=== PATIENT | female | born 1955 | race African-American/Black ===

== ENCOUNTER 2023-03-15 05:32 | Day surgery (SDC) | payer OTHER ==
[2023-03-09 11:30] VITALS: BMI 30.9
[2023-03-15 12:23] VITALS: BP 155/61; PULSE 51; RESP 18
[2023-03-15 12:41] VITALS: TEMP 98
== END 2023-03-15 12:37 | disposition home or self-care (01) ==
LOC: JASU-ENDO 05:32
PROVIDERS: ATTEND Student in an Organized Health Care Education/Training Program
PROC: 0DBN8ZX Excision of Sigmoid Colon, Via Natural or Artificial Opening Endoscopic, Diagnostic (ICD-10-PCS; 2023-03-15)
PROC: 0DBM8ZX Excision of Descending Colon, Via Natural or Artificial Opening Endoscopic, Diagnostic (ICD-10-PCS; principal; 2023-03-15 11:00)
DX: Z12.11 Encounter for screening for malignant neoplasm of colon (principal); D12.4 Benign neoplasm of descending colon; D12.5 Benign neoplasm of sigmoid colon; K63.89 Other specified diseases of intestine
CPT/HCPCS: 82962; 88305-TC

== ENCOUNTER 2024-10-10 13:35 | Observation (INO) | payer OTHER ==
[2024-10-10 13:43] VITALS: BMI 26.9
[2024-10-10] MEDS ORDERED: ALBUTEROL SO4 2.5/IPRATROPIUM 0.5 INH SOL 3 ML VIAL.NEB. NEB ONE (14:28)
[2024-10-10] MEDS: ALBUTEROL SO4 2.5/IPRATROPIUM 0.5 INH SOL 3 ML VIAL.NEB. NEB SCH ×2 (14:30→20:41)
[2024-10-10] MEDS ORDERED: ACETAMINOPHEN INJECTION 100 ML ONE (14:54)
[2024-10-10] MEDS ORDERED: methylPREDNISolone NA SUCC 125 MG/2 ML VIAL ONE (14:55)
[2024-10-10 14:59] LABS: BASO % 0.9 % (0-2.0); HEMATOCRIT 36.3 % (32.4-45.2); HEMOGLOBIN 11.9 GM/dL (10.7-15.3); LYMPH % 25.9 % (8-40); MCH 28.7 pg (25.7-33.7); MCHC 32.8 g/dl (32.0-36.0); MEAN CELL VOLUME 87.5 fl (80-96); MEAN PLT VOLUME 7.8 fl (7.5-11.1); MONO % 6.5 % (3.8-10.2); NEUT % 63.7 % (42.8-82.8); PLATELET COUNT 257 10^3/uL (134-434); RBC 4.15 M/mm3 (3.60-5.2); RDW 14.5 % (11.6-15.6); WHITE BLOOD COUNT 11.5 K/mm3 (4.0-10.0)
[2024-10-10 15:00] LABS: VENOUS BASE EXCESS 0.6 mmol/L (-2-2); VENOUS O2 SATURATION 38.9 % (70-80); VENOUS PCO2 53.9 mmHg (38-52); VENOUS PH 7.326 (7.310-7.410)
[2024-10-10] MEDS: ACETAMINOPHEN 1000 MG/100 ML BAG IVPB ONE (15:03)
[2024-10-10] MEDS: methylPREDNISolone NA SUCC 125 MG/2 ML VIAL IVPUSH ONE (15:03)
[2024-10-10 15:06] LABS: INR 1.05 (0.83-1.09); PROTHROMBIN TIME (PATIENT) 11.5 SEC (9.7-13.0)
[2024-10-10 15:08] LABS: ACTIVATED PTT 31.2 SECONDS (25.2-36.5)
[2024-10-10 15:28] LABS: POTASSIUM 4.3 mmol/L (3.5-5.1)
[2024-10-10 15:31] LABS: ALBUMIN 3.3 g/dl (3.4-5.0); BLOOD UREA NITROGEN 8.5 mg/dL (7-18); CALCIUM 8.9 mg/dL (8.5-10.1)
[2024-10-10 15:34] LABS: CREATININE 0.5 mg/dL (0.55-1.3)
[2024-10-10 15:36] LABS: BILIRUBIN,TOTAL 0.4 mg/dL (0.2-1); TOT PROT 6.7 g/dl (6.4-8.2)
[2024-10-10 16:52] LABS: HIV INTERPRETATION NEGATIVE (NEGATIVE)
[2024-10-10 16:58] LABS: N-TERMINAL BNP 71.5 pg/ml (5-125)
[2024-10-10 17:19] LABS: ERYTHROCYTE SEDIMENTATION RATE 18 mm/hr (0-30)
[2024-10-10] MEDS ORDERED: ENOXAPARIN NA (PORCINE) 60 MG/0.6 ML DISP.SYRIN SQ ONE (18:08)
[2024-10-10] MEDS: ENOXAPARIN NA (PORCINE) 60 MG/0.6 ML DISP.SYRIN SQ ONE (18:10)
[2024-10-10] MEDS: methylPREDNISolone NA SUCC 40 MG/1 ML VIAL IVPUSH SCH (20:28)
[2024-10-11 07:15] LABS: BASO % 0.2 % (0-2.0); HEMATOCRIT 33.7 % (32.4-45.2); LYMPH % 14.6 % (8-40); MCH 28.5 pg (25.7-33.7); MCHC 32.6 g/dl (32.0-36.0); MEAN CELL VOLUME 87.3 fl (80-96); MEAN PLT VOLUME 8.1 fl (7.5-11.1); MONO % 6.3 % (3.8-10.2); NEUT % 78.9 % (42.8-82.8); PLATELET COUNT 257 10^3/uL (134-434); RBC 3.86 M/mm3 (3.60-5.2)
[2024-10-11 07:21] LABS: POTASSIUM 4.1 mmol/L (3.5-5.1)
[2024-10-11 07:27] LABS: BLOOD UREA NITROGEN 9.7 mg/dL (7-18); CALCIUM 9.2 mg/dL (8.5-10.1); MAGNESIUM 1.9 mg/dL (1.8-2.4)
[2024-10-11 07:30] LABS: CREATININE 0.7 mg/dL (0.55-1.3)
[2024-10-11 07:32] LABS: PHOSPHOROUS 2.6 mg/dL (2.5-4.9)
[2024-10-11] MEDS ORDERED: ASPIRIN 81 MG CHEWABLE TABLETS PO SCH (10:00)
[2024-10-11] MEDS: ASPIRIN COATED 81 MG TABLET.EC PO SCH (11:16)
[2024-10-11] MEDS: ENOXAPARIN NA (PORCINE) 40 MG/0.4 ML DISP.SYRIN SQ SCH (11:16)
[2024-10-11] MEDS: predniSONE 20 MG TABLET (UD) PO SCH (11:16)
[2024-10-11] MEDS: AZITHROMYCIN 250 MG TABLET PO SCH (11:17)
[2024-10-11] MEDS: LISINOPRIL 20 MG TABLET PO SCH (11:17)
[2024-10-11] MEDS ORDERED: ZOLPIDEM TARTRATE 5 MG TABLET PO PRN (15:46)
[2024-10-11] MEDS: INSULIN ASPART SLIDING SCALE (NOVOLOG) 1 VIAL SQ SCH (17:18)
[2024-10-11] MEDS: amLODIPine BESYLATE 2.5 MG TABLET (FP) PO SCH (17:18)
[2024-10-11] MEDS: ACETAMINOPHEN 1000 MG/100 ML BAG IVPB PRN (20:35)
[2024-10-11] MEDS ORDERED: traZODone HCL 100 MG TABLET (FP) PO SCH (22:00)
[2024-10-11] MEDS: ATORVASTATIN CA 20 MG TABLET (FP) PO SCH (22:30)
[2024-10-11] MEDS: IBUPROFEN 400 MG TABLET (FP) PO ONE (22:35)
[2024-10-11] MEDS: LIDOCAINE 4% PATCH TP ONE (23:13)
[2024-10-11] MEDS: LIDOCAINE PATCH REMOVAL MC SCH (23:14)
[2024-10-12 06:39] VITALS: BP 119/75; PULSE 72; TEMP 98.2
[2024-10-12] MEDS: INSULIN ASPART SLIDING SCALE (NOVOLOG) 1 VIAL SQ SCH (06:41)
[2024-10-12 07:19] LABS: POTASSIUM 3.6 mmol/L (3.5-5.1)
[2024-10-12 07:20] LABS: HEMATOCRIT 34.8 % (32.4-45.2); HEMOGLOBIN 11.2 GM/dL (10.7-15.3); MCH 28.2 pg (25.7-33.7); MCHC 32.2 g/dl (32.0-36.0); MEAN CELL VOLUME 87.6 fl (80-96); PLATELET COUNT 279 10^3/uL (134-434); RBC 3.97 M/mm3 (3.60-5.2)
[2024-10-12 07:23] LABS: ALBUMIN 3.1 g/dl (3.4-5.0); BLOOD UREA NITROGEN 8.6 mg/dL (7-18); CALCIUM 8.8 mg/dL (8.5-10.1)
[2024-10-12 07:26] LABS: CREATININE 0.5 mg/dL (0.55-1.3)
[2024-10-12 07:29] LABS: BILIRUBIN,TOTAL 0.5 mg/dL (0.2-1); TOT PROT 6.5 g/dl (6.4-8.2)
[2024-10-12] MEDS: FOLIC ACID 1 MG TABLET (FP) PO SCH (10:24)
[2024-10-12] MEDS: EMPAGLIFLOZIN (JARDIANCE) 10 MG TABLET PO SCH (10:24)
[2024-10-12 12:32] VITALS: RESP 16
== END 2024-10-12 14:03 | disposition home health service (06) ==
LOC: JER 13:35 → UNDOADMOB 18:04 → JERBED 18:04 → OBSVTOIN 18:42 → INTOOBSV 18:42 → JERBED 19:24 → J4W 19:24 → JERBED 10-11 14:17 → J4W 10-11 14:17
PROVIDERS: ADMIT Internal Medicine; ATTEND Internal Medicine
PROC: 3E033NZ Introduction of Analgesics, Hypnotics, Sedatives into Peripheral Vein, Percutaneous Approach (ICD-10-PCS; principal; 2024-10-11)
PROC: 3E0F7GC Introduction of Other Therapeutic Substance into Respiratory Tract, Via Natural or Artificial Opening (ICD-10-PCS; 2024-10-11)
PROC: 3E023GC Introduction of Other Therapeutic Substance into Muscle, Percutaneous Approach (ICD-10-PCS; 2024-10-11)
PROC: 3E013VG Introduction of Insulin into Subcutaneous Tissue, Percutaneous Approach (ICD-10-PCS; 2024-10-11)
PROC: 3E033GC Introduction of Other Therapeutic Substance into Peripheral Vein, Percutaneous Approach (ICD-10-PCS; 2024-10-11)
DX: J44.1 Chronic obstructive pulmonary disease with (acute) exacerbation (principal); I10 Essential (primary) hypertension; E11.9 Type 2 diabetes mellitus without complications; Z72.3 Lack of physical exercise; F41.8 Other specified anxiety disorders; L97.529 Non-pressure chronic ulcer of other part of left foot with unspecified severity; Z87.891 Personal history of nicotine dependence
CPT/HCPCS: 0241U-QW; 36415; 71045-TC-FY; 80048; 80053; 82803; 82962; 83036; 83735; 83880; 84100; 84439; 84443; 84479; 84481; 84484; 85025; 85027; 85379; 85610; 85651; 85730; 86140; 86803; 86850; 86900; 86901; 87389; 93005; 93010; 93306-TC; 93970-TC; 94640; 94761; 96372; 96374; 96375; 96376; 97116-GP; 97162-GP; 99291; G0378; J0131

== ENCOUNTER 2025-01-15 08:43 | Emergency (ER) | payer OTHER ==
[2025-01-15 09:03] VITALS: BP 150/82; PULSE 76; RESP 18; TEMP 98.5; BMI 29.0
[2025-01-15] MEDS ORDERED: LIDOCAINE 4% PATCH TP ONE (10:05)
[2025-01-15] MEDS: LIDOCAINE 5% TOPICAL PATCH TP ONE (10:13)
[2025-01-15] MEDS ORDERED: LIDOCAINE PATCH REMOVAL MC ONE (22:00)
== END 2025-01-15 15:58 | disposition home or self-care (01) ==
LOC: JER 08:43
DX: G95.9 Disease of spinal cord, unspecified (principal); M54.2 Cervicalgia; M25.511 Pain in right shoulder; G89.29 Other chronic pain
CPT/HCPCS: 72125-TC; 99284-25